=== PATIENT | male | born 1955 | race Caucasian/White ===

== ENCOUNTER 2017-01-22 03:50 | Emergency (ER) | payer MEDICAID ==
[2017-01-22] MEDS ORDERED: LANTUS100 UNITS/ SUB-Q (04:16)
== END 2017-01-22 09:47 | disposition home or self-care (01) ==
LOC: ED 03:50
DX: E11.9 Type 2 diabetes mellitus without complications (principal); R45.851 Suicidal ideations; F43.10 Post-traumatic stress disorder, unspecified; F31.9 Bipolar disorder, unspecified; F17.200 Nicotine dependence, unspecified, uncomplicated; Z79.4 Long term (current) use of insulin
CPT/HCPCS: 80053; 80176; 81001; 84443; 85025; 96372; 99283; G0480

== ENCOUNTER 2017-01-23 21:44 | Emergency (ER) | payer OTHER, MEDICAID ==
[~2017-01-23] VITALS: Ht 177.8 cm; Wt 59.0 kg
[~2017-01-23 21:44] MED LIST: LANTUS100 UNITS/ SUB-Q
== END 2017-01-24 00:48 | disposition home or self-care (01) ==
LOC: ED 21:44
DX: F32.9 Major depressive disorder, single episode, unspecified (principal); E11.9 Type 2 diabetes mellitus without complications; F15.10 Other stimulant abuse, uncomplicated; R45.851 Suicidal ideations; Z04.6 Encounter for general psychiatric examination, requested by authority; Z59.0 Homelessness; Z79.4 Long term (current) use of insulin
CPT/HCPCS: 36415; 80053; 80176; 81001; 84443; 85025; 99283; G0480

== ENCOUNTER 2017-01-26 13:18 | Emergency (ER) | payer OTHER ==
[~2017-01-26] VITALS: Ht 177.8 cm; Wt 59.0 kg
[2017-01-26] MEDS ORDERED: DEPAKOTE ER500 MG PO (23:49)
[2017-01-26] MEDS ORDERED: PAXIL20 MG PO (23:49)
[2017-01-26] MEDS ORDERED: NAPROXEN250 MG PO (23:50)
[2017-01-27] MEDS ORDERED: METFORMIN HCL500 MG PO (10:26)
== END 2017-01-27 01:05 | disposition home or self-care (01) ==
LOC: ED 13:18
DX: F31.9 Bipolar disorder, unspecified (principal); F43.10 Post-traumatic stress disorder, unspecified; E11.9 Type 2 diabetes mellitus without complications; F17.200 Nicotine dependence, unspecified, uncomplicated; Z79.899 Other long term (current) drug therapy
CPT/HCPCS: 80053; 80176; 81001; 84443; 85025; 99283; G0480

== ENCOUNTER 2017-01-27 10:10 | Emergency (ER) | payer OTHER ==
[~2017-01-27] VITALS: Ht 177.8 cm; Wt 59.0 kg
[~2017-01-27 10:10] MED LIST changes: +DEPAKOTE ER500 MG PO; +NAPROXEN250 MG PO; +PAXIL20 MG PO
[2017-01-27] MEDS ORDERED: METFORMIN HCL500 MG PO (10:26)
== END 2017-01-28 09:00 | disposition home or self-care (01) ==
LOC: ED 10:10
DX: F60.2 Antisocial personality disorder (principal); F19.90 Other psychoactive substance use, unspecified, uncomplicated; E11.9 Type 2 diabetes mellitus without complications; F17.200 Nicotine dependence, unspecified, uncomplicated; F31.9 Bipolar disorder, unspecified; Z79.01 Long term (current) use of anticoagulants
CPT/HCPCS: 80053; 80176; 81001; 84443; 85025; 96374; 96375; 99283; G0480